=== PATIENT | female | born 1975 | race Caucasian/White ===

== ENCOUNTER → 2020-03-04 | Outpatient (CLI) | payer OTHER ==
[~2020-03-04] VITALS: Ht 160 cm; Wt 68.0 kg
[~2020-03-04] MED LIST: K-DUR TAB 20 M20 MEQ PO
== END ==
LOC: OPSV 10:00
DX: M06.9 Rheumatoid arthritis, unspecified (principal)
CPT/HCPCS: 96365; 96375; J0129; J1720

== ENCOUNTER → 2020-04-01 | Outpatient (CLI) | payer OTHER ==
[~2020-04-01] VITALS: Ht 160 cm; Wt 68.0 kg
[2020-04-01 12:28] LABS: HEMOGLOBIN 15.9 gm/dl (12.3-15.3); RED BLOOD COUNT 5.03 M/UL (4.00-5.10); WHITE BLOOD COUNT 19.2 K/UL (4.5-11.0)
[2020-04-01 12:49] LABS: BUN/CREATININE RATIO 13 (0-10)
== END ==
LOC: OPSV 11:00
PROVIDERS: Internal Medicine
DX: M05.79 Rheumatoid arthritis with rheumatoid factor of multiple sites without organ or systems involvement (principal); Z79.899 Other long term (current) drug therapy
CPT/HCPCS: 80053; 85025; 85652; 86140; 96365; 96375; J0129; J1720

== ENCOUNTER → 2020-04-29 | Outpatient (CLI) | payer OTHER ==
[~2020-04-29] VITALS: Ht 160 cm; Wt 68.0 kg
== END ==
LOC: OPSV 11:00
DX: M06.9 Rheumatoid arthritis, unspecified (principal)
CPT/HCPCS: 96365; 96375; J0129; J1720

== ENCOUNTER → 2020-05-27 | Outpatient (CLI) | payer OTHER ==
[~2020-05-27] VITALS: Ht 160 cm; Wt 68.0 kg
[2020-06-02 18:11] LABS: QUANTIFERON MITOGEN VALUE >10.00 IU/mL (.); QUANTIFERON NIL VALUE 0.26 IU/mL (.); QUANTIFERON TB2 AG VALUE 0.16 IU/mL (.); QUANTIFERON-TB GOLD PLUS Negative (Negative)
== END ==
LOC: OPSV 11:00
PROVIDERS: Internal Medicine
DX: M06.9 Rheumatoid arthritis, unspecified (principal)
CPT/HCPCS: 36415; 96365; 96375; J0129; J1720

== ENCOUNTER → 2020-06-24 | Outpatient (CLI) | payer OTHER ==
[~2020-06-24] VITALS: Ht 160 cm; Wt 68.0 kg
== END ==
LOC: OPSV 11:00
DX: M06.9 Rheumatoid arthritis, unspecified (principal)
CPT/HCPCS: 96365; 96375; J0129; J1720

== ENCOUNTER 2020-07-22 14:22 | Emergency (ER) | payer OTHER ==
[2020-07-22] MEDS ORDERED: K-DUR TAB 20 M20 MEQ PO (15:30)
== END 2020-07-22 15:40 | disposition home or self-care (01) ==
LOC: ER1 14:22
DX: E87.6 Hypokalemia (principal); M06.9 Rheumatoid arthritis, unspecified; J45.909 Unspecified asthma, uncomplicated; Z90.49 Acquired absence of other specified parts of digestive tract; F17.210 Nicotine dependence, cigarettes, uncomplicated
CPT/HCPCS: 36415; 80053; 85025; 93005; 96365; 96375; 99284; J0129; J1720

== ENCOUNTER → 2020-08-19 | Outpatient (CLI) | payer OTHER ==
[~2020-08-19] VITALS: Ht 160 cm; Wt 68.0 kg
== END ==
LOC: OPSV 11:00
DX: M06.9 Rheumatoid arthritis, unspecified (principal)
CPT/HCPCS: 96365; 96375; J0129; J1720

== ENCOUNTER → 2020-09-16 | Outpatient (CLI) | payer OTHER ==
[~2020-09-16] VITALS: Ht 160 cm; Wt 68.0 kg
== END ==
LOC: OPSV 11:00
DX: M06.9 Rheumatoid arthritis, unspecified (principal)
CPT/HCPCS: 96365; 96375; J0129; J1720

== ENCOUNTER → 2020-10-14 | Outpatient (CLI) | payer OTHER ==
[~2020-10-14] VITALS: Ht 160 cm; Wt 68.0 kg
== END ==
LOC: OPSV 10:45
DX: M06.9 Rheumatoid arthritis, unspecified (principal)
CPT/HCPCS: 96365; 96375; J0129; J1720

== ENCOUNTER → 2020-11-05 | Outpatient (CLI) | payer OTHER | LOC: KOH-I 13:06 | DX: M79.671 Pain in right foot (principal); M79.672 Pain in left foot; S92.352A Displaced fracture of fifth metatarsal bone, left foot, initial encounter for closed fracture | CPT/HCPCS: 73630 ==

== ENCOUNTER → 2020-11-09 | Outpatient (CLI) | payer OTHER | LOC: KOH-I 15:39 | DX: M54.2 Cervicalgia (principal); M54.6 Pain in thoracic spine | CPT/HCPCS: 72040; 72070; 72100 ==

== ENCOUNTER → 2020-11-13 | Outpatient (CLI) | payer OTHER ==
[~2020-11-13] VITALS: Ht 160 cm; Wt 68.0 kg
== END ==
LOC: OPSV 12:00
DX: M06.9 Rheumatoid arthritis, unspecified (principal)
CPT/HCPCS: 96365; 96375; J0129; J1720

== ENCOUNTER → 2020-12-11 | Outpatient (CLI) | payer OTHER ==
[~2020-12-11] VITALS: Ht 160 cm; Wt 68.0 kg
== END ==
LOC: OPSV 12:00
DX: M06.9 Rheumatoid arthritis, unspecified (principal)
CPT/HCPCS: 96365; 96375; J0129; J1720

== ENCOUNTER → 2021-02-11 | Outpatient (CLI) | payer OTHER ==
[~2021-02-11] VITALS: Ht 160 cm; Wt 68.0 kg
== END ==
LOC: OPSV 11:00
DX: M06.9 Rheumatoid arthritis, unspecified (principal)
CPT/HCPCS: 96365; 96375; J0129; J1720

== ENCOUNTER → 2021-03-25 | Outpatient (CLI) | payer OTHER ==
[~2021-03-25] VITALS: Ht 160 cm; Wt 68.0 kg
== END ==
LOC: OPSV 03-11 11:00
DX: M06.9 Rheumatoid arthritis, unspecified (principal)
CPT/HCPCS: 96365; 96375; J0129; J1720

== ENCOUNTER → 2021-09-15 | Outpatient (CLI) | payer OTHER | LOC: KOH-I 16:32 | DX: R07.9 Chest pain, unspecified (principal); R94.31 Abnormal electrocardiogram [ECG] [EKG]; R22.43 Localized swelling, mass and lump, lower limb, bilateral; M06.9 Rheumatoid arthritis, unspecified; M81.8 Other osteoporosis without current pathological fracture; F17.218 Nicotine dependence, cigarettes, with other nicotine-induced disorders; J90 Pleural effusion, not elsewhere classified; J98.11 Atelectasis | CPT/HCPCS: 71046 ==

== ENCOUNTER → 2021-09-15 | Outpatient (CLI) | payer OTHER ==
[2021-09-15 18:25] LABS: HEMOGLOBIN 13.6 gm/dl (12.3-15.3); RED BLOOD COUNT 4.6 M/UL (4.00-5.10); WHITE BLOOD COUNT 11.6 K/UL (4.5-11.0)
[2021-09-15 19:02] LABS: BUN/CREATININE RATIO 10 (0-10)
== END ==
LOC: LAB 17:26
PROVIDERS: Nurse Practitioner
DX: R07.9 Chest pain, unspecified (principal); R22.43 Localized swelling, mass and lump, lower limb, bilateral; R94.31 Abnormal electrocardiogram [ECG] [EKG]; M06.9 Rheumatoid arthritis, unspecified; M81.8 Other osteoporosis without current pathological fracture; F17.218 Nicotine dependence, cigarettes, with other nicotine-induced disorders
CPT/HCPCS: 80053; 82550; 82553; 83605; 83880; 84443; 85025; 86140

== ENCOUNTER → 2021-09-22 | Outpatient (CLI) | payer OTHER | LOC: RAD 17:59 | DX: R79.89 Other specified abnormal findings of blood chemistry (principal); R07.2 Precordial pain; R06.02 Shortness of breath; J81.1 Chronic pulmonary edema | CPT/HCPCS: Q9967 ==

== ENCOUNTER 2021-10-01 13:24 | Emergency (ER) | payer OTHER ==
[2021-10-01 13:59] LABS: HEMOGLOBIN 14.9 gm/dl (12.3-15.3); RED BLOOD COUNT 5.07 M/UL (4.00-5.10); WHITE BLOOD COUNT 17.5 K/UL (4.5-11.0)
[2021-10-01 14:16] LABS: BUN/CREATININE RATIO 9 (0-10)
[2021-10-01] MEDS ORDERED: VIBRAMYCIN100 MG PO (17:29)
== END 2021-10-01 17:49 | disposition home or self-care (01) ==
LOC: ER1 13:24
DX: J18.9 Pneumonia, unspecified organism (principal); K21.9 Gastro-esophageal reflux disease without esophagitis; E78.5 Hyperlipidemia, unspecified; F17.210 Nicotine dependence, cigarettes, uncomplicated; Z79.899 Other long term (current) drug therapy; Z20.822 Contact with and (suspected) exposure to COVID-19
CPT/HCPCS: 71046; 80053; 82550; 82553; 83605; 83880; 84484; 85025; 85379; 87040; 93005; 96361; 96374; 99285; J0456; J0696; J7030; Q9967; U0002